=== PATIENT | female | born 1945 | race Asian ===

== ENCOUNTER 2018-05-19 12:41 | Emergency (ER) | payer OTHER ==
[~2018-05-19] VITALS: Ht 154.9 cm; Wt 61.2 kg
[2018-05-19 12:49] VITALS: BP_SYST 161
[2018-05-19] MEDS ORDERED: NACL 0.9% 1,000 ML IV ONE ×2 (13:16→14:00)
[2018-05-19] MEDS ORDERED: ONDANSETRON HCL 4 MG/2 ML VIAL IVP ONE (13:30)
[2018-05-19 13:56] LABS: BILIRUBIN,URINE NEGATIVE (NEGATIVE); BLOOD, URINE 2+ (NEGATIVE); CLARITY/URINE CLEAR (CLEAR); COLOR,URINE YELLOW (YELLOW); GLUCOSE,URINE NEGATIVE (NEGATIVE); KETONES,URINE NEGATIVE (NEGATIVE); LEUKOCYTE ESTERASE ,URINE NEGATIVE (NEGATIVE); NITRITE, URINE NEGATIVE (NEGATIVE); PH,URINE 5.5 (5.0-8.0); PROTEIN URINE NEGATIVE (NEGATIVE); UROBILINOGEN,URINE 0.2 (0.2-1.0)
[2018-05-19] MEDS ORDERED: MORPHINE 4 MG/ML INJ. SYRINGE IVP ONE (14:00)
[2018-05-19 14:12] LABS: BACTERIA,URINE FEW /HPF (None Seen); WBC,URINE 0-3 /HPF (0-3)
[2018-05-19 14:38] LABS: ANION GAP 6 (5-15); CALCIUM 9.8 mg/dL (8.4-11.0); CHLORIDE 102 mmol/L (98-107); CREATININE 0.94 mg/dL (0.55-1.30); GLUCOSE 95 mg/dL (70-99); POTASSIUM 3.6 mmol/L (3.5-5.1); SODIUM SERUM 137 mmol/L (136-145); UREA NITROGEN, BLOOD 19 mg/dL (8-21)
[2018-05-19 14:42] LABS: HEMATOCRIT 39.6 % (36-48); HEMOGLOBIN 13.2 g/dL (12.0-16.0); LYMPHOCYTES % (AUTO) 25.2 % (20.5-51.5); MEAN CORPUSCULAR HEMOGLOBIN 32 pg (27-31); MEAN CORPUSCULAR HGB CONC 33 % (32-36); MEAN CORPUSCULAR VOLUME 94 fL (79.0-98.0); MONOCYTES % (AUTO) 4.9 % (1.7-9.3); NEUTROPHILS % (AUTO) 66.2 % (40.0-70.0); PLATELET COUNT (AUTO) 275 K/uL (130-430); RED CELL DISTRIBUTION WIDTH 13.8 % (9.0-15.0); WHITE BLOOD COUNT (AUTO) 9.7 K/uL (4.8-10.8)
[2018-05-19 14:43] LABS: BASOPHILS # (AUTO) 0.1 K/uL (0.0-0.2); EOSINOPHILS # (AUTO) 0.3 K/uL (0.0-0.4); EOSINOPHILS % (AUTO) 2.7 % (0.0-4.0); LYMPHOCYTES # (AUTO) 2.4 K/uL (1.0-5.5); MONOCYTES # (AUTO) 0.5 K/uL (0.0-1.0); NEUTROPHILS # (AUTO) 6.4 K/uL (1.8-7.7)
[2018-05-19 14:46] LABS: ALANINE AMINOTRANSFERASE 17 U/L (12-78); ALBUMIN 3.5 g/dL (3.4-4.8); AMYLASE 65 U/L (0-100); ASPARTATE AMINOTRANSFERASE 16 U/L (10-37); LIPASE 161 U/L (73-393); TOTAL BILIRUBIN 0.4 mg/dL (0.0-1.0)
[2018-05-19 15:09] LABS: PROTHROMBIN TIME 8.9 SECS (9.5-12.5)
[2018-05-19 15:12] LABS: INR 0.9 (0.8-1.2)
[2018-05-19] MEDS ORDERED: METOPROLOL TARTRATE 25 MG TABLET PO ONE (16:15)
[2018-05-19] MEDS ORDERED: LOSARTAN POTASSIUM 50 MG TABLET (COZAAR) PO ONE (16:15)
[2018-05-19 16:45] VITALS: BP_SYST 163
== END 2018-05-19 16:45 | disposition home or self-care (01) ==
LOC: SED 12:41
DX: N83.201 Unspecified ovarian cyst, right side (principal)
CPT/HCPCS: 36415; 74176; 80053; 81000; 82150; 83690; 85025; 85610; 96374; 99284; J2405; J7030

== ENCOUNTER 2022-06-29 21:45 | Inpatient (IN) | payer OTHER ==
[~2022-06-29] VITALS: Ht 154.9 cm; Wt 72.8 kg
[2022-06-29 21:49] VITALS: BP_SYST 117
[2022-06-29] MEDS ORDERED: NACL 0.9% 1,000 ML IV ONE (22:15)
[2022-06-29 22:41] LABS: BASOPHILS # (AUTO) 0.1 K/uL (0.0-0.2); BASOPHILS % (AUTO) 0.6 % (0.0-2.0); EOSINOPHILS % (AUTO) 0.4 % (0.0-4.0); HEMATOCRIT 35.4 % (36-48); HEMOGLOBIN 11.7 g/dL (12.0-16.0); LYMPHOCYTES # (AUTO) 1.2 K/uL (1.0-5.5); LYMPHOCYTES % (AUTO) 13.1 % (20.5-51.5); MEAN CORPUSCULAR HEMOGLOBIN 31 pg (27-31); MEAN CORPUSCULAR HGB CONC 33 % (32-36); MEAN CORPUSCULAR VOLUME 92 fL (79.0-98.0); MONOCYTES # (AUTO) 0.7 K/uL (0.0-1.0); MONOCYTES % (AUTO) 7.3 % (1.7-9.3); NEUTROPHILS # (AUTO) 7.3 K/uL (1.8-7.7); NEUTROPHILS % (AUTO) 78.6 % (40.0-70.0); PLATELET COUNT (AUTO) 188 K/uL (130-430); RED BLOOD CELL COUNT(AUTO) 3.83 MIL/uL (4.2-6.2); RED CELL DISTRIBUTION WIDTH 13.3 % (9.0-15.0); WHITE BLOOD COUNT (AUTO) 9.2 K/uL (4.8-10.8)
[2022-06-29 22:57] LABS: ANION GAP 11 (5-15); CALCIUM 7.8 mg/dL (8.4-11.0); CHLORIDE 101 mmol/L (98-107); CREATININE 1.34 mg/dL (0.55-1.30); GLUCOSE 193 mg/dL (70-99); UREA NITROGEN, BLOOD 22 mg/dL (8-21)
[2022-06-29 23:16] LABS: ALANINE AMINOTRANSFERASE 15 U/L (12-78); ALBUMIN 2.5 g/dL (3.4-4.8); ASPARTATE AMINOTRANSFERASE 22 U/L (10-37); TOTAL BILIRUBIN 0.5 mg/dL (0.0-1.0)
[2022-06-30] MEDS ORDERED: ASPIRIN 81 MG TAB.CHEW PO ONE
[2022-06-30] MEDS ORDERED: CLON0.5T4 PO (00:15)
[2022-06-30] MEDS ORDERED: HYDR-4039 PO (00:15)
[2022-06-30 00:20] LABS: BILIRUBIN,URINE NEGATIVE (NEGATIVE); BLOOD, URINE NEGATIVE (NEGATIVE); COLOR,URINE YELLOW (YELLOW); GLUCOSE,URINE NEGATIVE (NEGATIVE); KETONES,URINE NEGATIVE (NEGATIVE); LEUKOCYTE ESTERASE ,URINE NEGATIVE (NEGATIVE); NITRITE, URINE NEGATIVE (NEGATIVE); PROTEIN URINE 1+ (NEGATIVE); UROBILINOGEN,URINE 0.2 (0.2-1.0)
[2022-06-30 00:28] LABS: CLARITY/URINE HAZY (CLEAR)
[2022-06-30] MEDS ORDERED: LR 500 ML IV SCH (00:30)
[2022-06-30 00:42] LABS: BACTERIA,URINE None Seen /HPF (None Seen); RBC,URINE 0-3 /HPF (0-3); WBC,URINE 0-3 /HPF (0-3)
[2022-06-30 01:56] VITALS: BP_SYST 127
[2022-06-30 08:00] VITALS: BP_SYST 173
[2022-06-30] MEDS ORDERED: cefTRIAXone 1 GM VIAL IV SCH (09:00)
[2022-06-30] MEDS ORDERED: cloNIDine HCL 0.1 MG TABLET PO SCH (09:00)
[2022-06-30] MEDS ORDERED: CEFTRIAXONE SOD 1 GM/ D5W 50 ML IV SCH ×2 (09:00)
[2022-06-30] MEDS ORDERED: cefTRIAXone 1 GM VIAL IM SCH (09:00)
[2022-06-30 11:31] VITALS: BP_SYST 132
[2022-06-30] MEDS ORDERED: cloNIDine HCL 0.1 MG TABLET PO PRN (13:00)
[2022-06-30 16:00] VITALS: BP_SYST 152
[2022-06-30 16:16] LABS: PROTHROMBIN TIME 9.9 SECS (9.5-12.5)
[2022-06-30 16:17] LABS: TOTAL IRON BIND. CAPACITY 237 ug/dL (250-450)
[2022-06-30 16:47] LABS: FREE T4 (FREE THYROXINE) 0.9 ng/dL (0.6-1.6); THYROID STIMULATING HORMONE 0.81 uIu/mL (0.34-4.82)
[2022-06-30 20:00] VITALS: BP_SYST 161
[2022-07-01 00:22] VITALS: BP_SYST 144
[2022-07-01] MEDS ORDERED: LR 1,000 ML IV SCH (00:30)
[2022-07-01 02:44] LABS: ANION GAP 10 (5-15); CALCIUM 8.2 mg/dL (8.4-11.0); CHLORIDE 107 mmol/L (98-107); CREATININE 1.12 mg/dL (0.55-1.30); GLUCOSE 123 mg/dL (70-99); UREA NITROGEN, BLOOD 20 mg/dL (8-21)
[2022-07-01 02:45] LABS: BASOPHILS # (AUTO) 0.1 K/uL (0.0-0.2); EOSINOPHILS # (AUTO) 0.1 K/uL (0.0-0.4); EOSINOPHILS % (AUTO) 1.6 % (0.0-4.0); HEMATOCRIT 35.8 % (36-48); HEMOGLOBIN 12.1 g/dL (12.0-16.0); LYMPHOCYTES # (AUTO) 1.7 K/uL (1.0-5.5); LYMPHOCYTES % (AUTO) 21.7 % (20.5-51.5); MEAN CORPUSCULAR HEMOGLOBIN 31 pg (27-31); MEAN CORPUSCULAR HGB CONC 34 % (32-36); MEAN CORPUSCULAR VOLUME 92 fL (79.0-98.0); MONOCYTES # (AUTO) 0.8 K/uL (0.0-1.0); MONOCYTES % (AUTO) 10.5 % (1.7-9.3); NEUTROPHILS # (AUTO) 5.2 K/uL (1.8-7.7); NEUTROPHILS % (AUTO) 65.2 % (40.0-70.0); PLATELET COUNT (AUTO) 205 K/uL (130-430); RED CELL DISTRIBUTION WIDTH 13.5 % (9.0-15.0); WHITE BLOOD COUNT (AUTO) 7.9 K/uL (4.8-10.8)
[2022-07-01 03:06] LABS: ALANINE AMINOTRANSFERASE 18 U/L (12-78); ALBUMIN 2.5 g/dL (3.4-4.8); ASPARTATE AMINOTRANSFERASE 24 U/L (10-37); CHOLESTEROL 218 mg/dL (<200); HDL CHOLESTEROL 61 mg/dL (>55); LIPASE 119 U/L (73-393); THYROID STIMULATING HORMONE 1.62 uIu/mL (0.34-4.82); TOTAL BILIRUBIN 0.5 mg/dL (0.0-1.0); TRIGLYCERIDES 95 mg/dL (30-150)
[2022-07-01 08:00] VITALS: BP_SYST 179
[2022-07-01] MEDS ORDERED: ASPIRIN 81 MG TAB.CHEW PO SCH (09:00)
[2022-07-01] MEDS ORDERED: ATORVASTATIN 20 MG TABLET PO ONE (10:15)
[2022-07-01 11:26] VITALS: BP_SYST 164
[2022-07-01] MEDS ORDERED: LIP20 PO (14:34)
[2022-07-01] MEDS ORDERED: ASA81 PO (14:34)
[2022-07-01] MEDS ORDERED: CLON0.1T PO (14:34)
[2022-07-01 14:45] VITALS: BP_SYST 136
[2022-07-01] MEDS ORDERED: cloNIDine HCL 0.1 MG TABLET PO SCH (21:00)
[2022-07-02] MEDS ORDERED: ATORVASTATIN 20 MG TABLET PO SCH (09:00)
== END 2022-07-01 15:10 | disposition home health service (06) | DRG 640 ==
LOC: SED 21:45 → STU 06-30 00:22
PROVIDERS: ADMIT Internal Medicine; ATTEND Internal Medicine
DX: E86.0 Dehydration (principal); G93.41 Metabolic encephalopathy; N17.0 Acute kidney failure with tubular necrosis; I21.A1 Myocardial infarction type 2; E44.0 Moderate protein-calorie malnutrition; I95.9 Hypotension, unspecified; I10 Essential (primary) hypertension; E66.9 Obesity, unspecified; Z96.651 Presence of right artificial knee joint; F03.90 Unspecified dementia, unspecified severity, without behavioral disturbance, psychotic disturbance, mood disturbance, and anxiety; Z91.041 Radiographic dye allergy status; Z79.899 Other long term (current) drug therapy; Z68.30 Body mass index [BMI] 30.0-30.9, adult
CPT/HCPCS: 36415; 70450-TC; 70551; 71045; 76376; 80053; 80061; 81000; 82140; 82607; 82746; 82962; 83540; 83550; 83690; 83735; 83880; 84439; 84443; 84484; 85025; 85610-TC; 85730-TC; 93005; 93306; 93880; 95816; 96360; 99285; G0378; J0696; J7060

== ENCOUNTER 2023-09-15 09:09 | Outpatient (CLI) | payer OTHER ==
[~2023-09-15 09:09] MED LIST: ASA81 PO; CLON0.1T PO; LIP20 PO
[2023-09-15 09:46] LABS: BASOPHILS # (AUTO) 0.1 K/uL (0.0-0.2); BASOPHILS % (AUTO) 0.9 % (0.0-2.0); EOSINOPHILS # (AUTO) 0.2 K/uL (0.0-0.4); EOSINOPHILS % (AUTO) 3.4 % (0.0-4.0); HEMATOCRIT 38.5 % (36-48); HEMOGLOBIN 12.9 g/dL (12.0-16.0); LYMPHOCYTES # (AUTO) 2.2 K/uL (1.0-5.5); LYMPHOCYTES % (AUTO) 32.2 % (20.5-51.5); MEAN CORPUSCULAR HEMOGLOBIN 31 pg (27-31); MEAN CORPUSCULAR HGB CONC 34 % (32-36); MEAN CORPUSCULAR VOLUME 93 fL (79.0-98.0); MONOCYTES # (AUTO) 0.4 K/uL (0.0-1.0); MONOCYTES % (AUTO) 5.5 % (1.7-9.3); PLATELET COUNT (AUTO) 245 K/uL (130-430); RED BLOOD CELL COUNT(AUTO) 4.15 MIL/uL (4.2-6.2); RED CELL DISTRIBUTION WIDTH 13.2 % (9.0-15.0); WHITE BLOOD COUNT (AUTO) 6.9 K/uL (4.8-10.8)
[2023-09-15 10:11] LABS: ALANINE AMINOTRANSFERASE 12 U/L (12-78); ALBUMIN 3.3 g/dL (3.4-4.8); ANION GAP 6 (5-15); ASPARTATE AMINOTRANSFERASE 14 U/L (10-37); BILIRUBIN,DIRECT 0.1 mg/dL (0.0-0.3); CALCIUM 9.5 mg/dL (8.4-11.0); CARBON DIOXIDE 30 mmol/L (23-29); CHLORIDE 104 mmol/L (98-107); CREATININE 1.45 mg/dL (0.55-1.30); GLUCOSE 108 mg/dL (74-106); POTASSIUM 3.8 mmol/L (3.5-5.1); SODIUM SERUM 140 mmol/L (136-145); TOTAL BILIRUBIN 0.6 mg/dL (0.0-1.0); TOTAL PROTEIN, SERUM 8.6 g/dL (6.4-8.3); UREA NITROGEN, BLOOD 27 mg/dL (8-21)
[2023-09-15 16:31] LABS: CHOLESTEROL 287 mg/dL (<200); HDL CHOLESTEROL 60 mg/dL (>55)
[2023-09-15 16:32] LABS: TRIGLYCERIDES 168 mg/dL (30-150)
== END 2023-09-15 18:27 | disposition home or self-care (01) ==
LOC: SLB 09:09
PROVIDERS: ATTEND Internal Medicine Cardiovascular Disease
DX: I10 Essential (primary) hypertension (principal); R55 Syncope and collapse; R42 Dizziness and giddiness; F03.90 Unspecified dementia, unspecified severity, without behavioral disturbance, psychotic disturbance, mood disturbance, and anxiety
CPT/HCPCS: 36415; 80053; 80061; 82248; 82542; 83037; 85025